=== PATIENT | female | born 1945 | race Caucasian/White ===

== ENCOUNTER → 2016-07-31 | Outpatient (CLI) | payer OTHER ==
[~2016-07-31] MED LIST: ACTOS 30 MG TAB30 MG PO; ADULT LOW DOSE81 MG PO; ALTACE10 M1 PO; ALTACE10 MG PO; BENICAR20 MG; BENICAR20 MG PO; CALTRATE PLUS1 EACH PO; CRESTOR10 MG PO; FISH OIL 1,001000 M2 PO; FORTICAL1 SPRAY NASAL; GLIPIZIDE 10 MG10 MG PO; GLUCOTROL5 MG PO; HYDROCHLOROTHIA25 M1 PO; HYDROCODONE-AP1 EAC6 PO; JANUVIA100 MG PO; LIPITOR 20 MG T20 M1 PO; MELATONIN3 MG PO; MIACALCIN; MOBIC15 MG PO; MULTIVITAMINS PO; PAXIL10 MG; PREMARIN0.45 MG PO; PROVERA2.5 MG PO; PROZAC 20 MG20 M1 PO; PROZAC20 MG PO; SYNTHROID50 MCG PO
== END ==
LOC: RAD 01:03
DX: D05.82 Other specified type of carcinoma in situ of left breast (principal)

== ENCOUNTER 2017-03-15 15:57 | Inpatient (IN) | payer OTHER ==
[~2017-03-15] VITALS: Ht 167.6 cm; Wt 127.0 kg
--- NOTE | ~2017-03-15 | P ---
[facility] [place] [address] [place] [address] PROCEDURE REPORT Name: YOSI TATE Room #: 438-P [facility] IN M.R.#: [id number] Admission: 03/15/17 Attend Phys: Mike Preciado DO Discharge: Date of : 47 Report #: [id number] THIS REPORT FOR: //name// CC: Orlando Hartmann MD [facility] Mike Dumont DATE OF SERVICE: 03/16/2017 PROCEDURE PERFORMED: Upper endoscopy. HISTORY OF PRESENT ILLNESS: The patient is a 71-year-old female with a history of anemia, previous gastric bypass surgery, started on Eliquis recently for atrial fib. She also takes aspirin. She was noted to be anemic with a hemoglobin of 7.6 on admission. She was transfused. Her hemoglobin at this time is 8.0. Plan is for upper endoscopy. DESCRIPTION OF PROCEDURE: The risks and benefits of the procedure were explained to the patient. Those risks including but not limited to bleeding, perforation and the risk of sedation. She understood these risks and gave informed consent. Sedation was given using propofol per Anesthesia. Next, using a standard Reactivityn upper endoscope, the scope was placed in the patient's mouth and advanced under direct vision through the esophagus into the stomach; at which point, a gastric bypass surgery was noted. The esophagus was normal. Throughout the GE junction was normal. The remaining gastric remnant was small. There was somewhat of a pouch to one side. There was no evidence of bleeding, no ulcerations or erosions were noted. There was then an efferent and an afferent limb of the jejunum anastomosed to the gastric remnant. I was able to advance the scope down both the limbs, down the afferent limb, no abnormalities were noted and it did come to a point where scope could not be advanced any further. This was then brought back up to the anastomosis site and I advanced the scope down the efferent limb well into the jejunum. No bleeding, no ulcerations were noted. Close analysis of the surgical anastomosis site showed no ulcer or bleeding. At this point, the scope was then withdrawn and the procedure terminated. The patient tolerated the procedure well. IMPRESSION: 1. Gastric bypass surgery noted as described above. No evidence of bleeding. 2. Normal esophagus. RECOMMENDATIONS: We will discuss options with the patient. I would consider repeating colonoscopy next as the patient does have anemia, heme positive stools and will need long-term anticoagulation therapy. If this is negative, may need to consider an M2 capsule at that point. [address] [address] PROCEDURE REPORT Name: YOSI TTAE Room #: 438-P [facility] IN .R.#: [id number] Admission: 03/15/17 Attend Phys: Mike Preciado DO Discharge: Date of : 47 Report #: [id number] Thank you for allowing me to participate in her care. <ELECTRONICALLY SIGNED> By: Miah Kwan MD 03/19/17 1417 1351 0118 Miah Kwan MD /india
--- NOTE | ~2017-03-15 | P ---
[facility] [address] [place] [address] PROCEDURE REPORT Name: YOSI TATE Room #: 438-P ADM IN M.R.#: [id number] Admission: 03/15/17 Attend Phys: Mike Preciado DO Discharge: Date of : 47 Report #: [id number] THIS REPORT FOR: //name// CC: Inpatient Chart Mike Preciado DO Ryan Dumont MD DATE OF SERVICE: 03/18/2017 The following is the diagnostic colonoscopy. She is the patient of Dr. Mike Preciado and Dr. Ryan Dumont. This is Dr. Nano Taveras recording. INDICATION FOR PROCEDURE: Anemia, heme positive stool and melena undetermined etiology. EGD was unrevealing as to a source of blood loss. DESCRIPTION OF PROCEDURE: Informed consent for this procedure was obtained prior to the administration of any medication. The risks of the procedure which include bleeding, perforation, infection, complications of sedation and the possibility I could miss something have been explained to the patient and she is indicated her consent by signing. Propofol was slowly titrated before and during this procedure for patient comfort by the anesthesia service. The Gamisfactionn colonoscope was introduced through the anal sphincter and advanced under direct visualization to the terminal ileum. Findings are noted on withdrawal of the scope. The terminal ileal mucosa appears normal. Cecum, normal mucosa. Ascending colon, normal mucosa. Retroflex view in the ascending colon did not reveal any abnormalities. Hepatic flexure, normal mucosa. Transverse colon, normal mucosa. Splenic flexure, normal mucosa. Descending colon, uncomplicated diverticulosis was noted. Sigmoid colon, uncomplicated diverticulosis is noted. Rectum, normal mucosa. Retroflex view did not reveal any abnormalities other than some mild irritation from the scope. The scope was withdrawn. The patient went to the recovery area in stable condition. She tolerated the procedure well. IMPRESSION: Normal colonoscopic exam to the terminal ileum except for uncomplicated left-sided diverticulosis, which could have been the source of some blood loss. My recommendations were for her to proceed to M2 capsule as the next study. This will probably need to be done as an outpatient. [address] [address] PROCEDURE REPORT Name: YOSI TATE Room #: 438-P [facility] IN M.R.#: [id number] Admission: 03/15/17 Attend Phys: Mike Preciado DO Discharge: Date of : 47 Report #: [id number] Thank you very much once again for allowing me to participate in her care, Dr. Preciado and Dr. Dumont. <ELECTRONICALLY SIGNED> By: Nano Taveras DO 03/19/17 0011 1535 2240 Nano Taveras DO /nt
--- NOTE | ~2017-03-15 | HC ---
[facility] [place] [address] [place] [address] CONSULTATION Name: YOSI TATE Fernando Room #: 438-P [facility] IN M.R.#: [id number] Admission: 03/15/17 Attend Phys: Mike Preciado DO Discharge: 03/21/17 Date of : 47 Report #: [id number] THIS REPORT FOR: //name// CC: Lisset Hartmann MD [facility] Mike Dumont DATE OF SERVICE: 03/16/2017 HISTORY OF PRESENT ILLNESS: The patient is a 71-year-old female with a history of anemia, microcystic, who underwent recent cataract surgery and was noted to be in AFib. She was then started on Eliquis approximately 3 weeks ago and on Wednesday began noticing black stools. Last colonoscopy was 3 years ago. No previous history of upper endoscopy. Hemoglobin was 7.6 before transfusion, hemoglobin this morning is 8.0. She had a previous gastric bypass type surgery approximately 15 years ago. She denies any abdominal pain. She denies any nausea or vomiting. No heartburn. She does take an aspirin on a regular basis as well. Her weight has been stable. Last dose of Eliquis was yesterday. 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 ALLERGIES: PENICILLIN. REVIEW OF SYSTEMS: As per HPI. FAMILY HISTORY: Negative for colon cancer or inflammatory bowel disease. SOCIAL HISTORY: She denies any tobacco or alcohol use. PHYSICAL EXAMINATION: VITAL SIGNS: Temperature is 98.0, pulse 62, blood pressure is 118/40, respiratory rate is 20. GENERAL: She is alert and oriented x 3 in no acute distress. HEENT: Sclerae nonicteric. Oropharynx clear. NECK: Supple without lymphadenopathy. CARDIOVASCULAR: Regular rate and rhythm. CHEST: Clear to auscultation bilaterally. ABDOMEN: Soft. She is nontender, nondistended, normoactive bowel sounds. EXTREMITIES: No cyanosis, clubbing or edema. LABORATORY DATA: Sodium 136, potassium 4.0, chloride 101, bicarbonate 28, BUN [address] [address] CONSULTATION Name: YOSI TATE Room #: 438-P [facility] IN .R.#: [id number] Admission: 03/15/17 Attend Phys: Mike Preciado DO Discharge: 03/21/17 Date of : 47 Report #: [id number], creatinine is 1.2. AST is 21, lipase 178, total bilirubin 0.3, alkaline phosphatase 95, ALT is 26, total protein 5.5, albumin 3.1. Iron 30, TIBC is 332, percent sat is 9. INR 1.2. WBC is 15.0, hemoglobin 8.0 and this is after 1 unit of packed cells, platelet count 200. Stool was Hemoccult positive yesterday x 1. ASSESSMENT AND PLAN: Anemia, heme positive stools. The patient reports recent black stools. She has been on Eliquis as well as aspirin. No previous history of upper endoscopy. Suspected upper gastrointestinal bleed. We will proceed with esophagogastroduodenoscopy today for further evaluation. We will make further recommendations after endoscopy. Continue to hold anticoagulation therapy. Agree with Protonix, which has been started b.i.d. Thank you for allowing me to participate in her care. <ELECTRONICALLY SIGNED> By: Miah Kwan MD 03/24/17 0811 1348 0010 Miah Kwan MD /nt
--- NOTE | ~2017-03-15 | HC ---
[facility] [place] [address] CONSULTATION Name: YOSI TATE Room #: 438-P [facility] IN M.R.#: [id number] Admission: 03/15/17 Attend Phys: Mike Preciado DO Discharge: Date of : 47 Report #: [id number] THIS REPORT FOR: //name// CC: Hitesh Mcdonald MD [facility] Mike Dumont MD REASON FOR CONSULT: Anemia. HISTORY OF PRESENT ILLNESS: The patient is a 71-year-old female who was scheduled to see today as an outpatient. She had noted that she had a history ____ records before wy, but she had a history of normal MCV about 86 about 2 or 3 years ago, dropped down to 78 and then after she took iron pills for 6 months, it rebounded. Also noted about that time, she repots that Dr. Olayinka Grace did a colonoscopy because she was heme positive, did not find any abnormalities. She did not have an EGD nor she ever had one. More recently, she after some cataract surgery had been noticed to have some atrial fibrillation. Dr. Hartmann had begun her on metoprolol as well as Eliquis. This was 2 weeks ago. This past Wednesday about 4 days ago, she noticed melena/black tarry stool, which she had never had before. She had not taken any Pepto-Bismol recently. She had not taken any iron pills recently. In the ER, she was noted to have hemoglobin of 7.6, was heme positive. She was also eventually noted that her BUN was 60, which ____ in the 20 or 30 range. Creatinine was 1.4. Other liver functions are normal. Noted albumin is 3.1. Total bilirubin specifically is normal. Her MCV yesterday has been 82.3. Chest x-ray was nonacute. She did receive 1 unit of packed red blood cells between 1905, which was completed at 2133 on 03/15/2017. REVIEW OF SYSTEMS: The patient denies headache, fevers, chills, nausea, vomiting, diarrhea, constipation, arm swelling. Has had some leg swelling for some time. No recent skin rash. No upset stomach. No dyspepsia. No burping or belching, any more than usual. PAST HISTORY: Notable for the anemia several years ago, for which she had a colonoscopy; also history of tubal ligation; lap cholecystectomy; lipomas removed; D and C in the past, though she still has her uterus now. Had a pituitary tumor removed by Dr. Hakan Salgado about 20 years ago in 1996. Had left foot reconstruction in the past. Had a gastric bypass 15 years ago. Had right knee replacement. 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 Had on the left breast biopsy, sounds like she says it is a tumor. She called it a chemical tumor. I think she is relating that she thinks it might have been told [address] [place] [address] CONSULTATION Name: YOSI TATE Room #: 438-P [facility] IN .R.#: [id number] Admission: 03/15/17 Attend Phys: Mike Preciado DO Discharge: Date of : 47 Report #: [id number] or she thought it is related to past estrogen usage. Also she has type 2 diabetes, atrial fibrillation, depression, hypertension, hyperlipidemia and hypothyroidism. MEDICATIONS PREVIOUS TO ADMISSION: Include metoprolol 25 mg daily, apixaban 5 mg b.i.d., multivitamins daily, aspirin 81 daily, calcium with vitamin D twice daily, Actos 30 mg daily, Benicar 20 mg daily, levothyroxine 50 mcg daily, hydrochlorothiazide 25 daily, glipizide 5 mg in the morning, Januvia 100 mg in the morning, fluoxetine/Prozac 20 mg in the morning, calcitonin 1 spray nasal morning, atorvastatin 20 mg daily, fish oil 2000 mg daily and melatonin 3 mg p.r.n. at night. In the hospital, her current medications include pantoprazole, which I just added; metoprolol 50 daily; atorvastatin 20 mg daily; calcitonin 1 spray daily; fluoxetine 20 mg daily; hydrochlorothiazide 25 mg daily; losartan 25 daily; enteric-coated aspirin 81 mg daily; multivitamins with minerals 1 tablet daily; IV fluids, which I just added at 70 mL daily while she is n.p.o. for probable EGD; glipizide 5 mg daily; levothyroxine 50 mcg daily; sliding scale insulin; melatonin 5 mg at bedtime and glucagon p.r.n. 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 She is originally from [place]. Her who 4 years ago, was with the [employer]. They transferred here. FAMILY HISTORY: Father had heart disease, mother may have also. She had no siblings. She has 3 children alive and well. She has a cat, named Christie, at home. Nonsmoker and nonalcoholic. No street drugs. ALLERGIES: REPORTED INCLUDE TROUBLES WITH METOLAZONE AND ALSO PREDNISONE CAUSING HIVES. PHYSICAL EXAMINATION: GENERAL: The patient appears her stated age. VITAL SIGNS: Include a height of 5 feet 6 inches (167.6 cm). Weight of 280 pounds (127 kilograms). Recent blood pressure is 126/40 with an O2 sat of 99%. Respirations are 20. Pulse is 60. Afebrile at 98.2. MOOD: The patient is alert and pleasant and appears to be a reliable historian. NEUROLOGIC: Face is symmetrical. She is moving all extremities. LYMPHATICS: No enlarged lymph nodes in the supraclavicular, cervical, axillary or inguinal region, but notes that she is quite obese. ABDOMEN: Nontender. No masses. EXTREMITIES: Without clubbing or cyanosis. LABORATORY: Here is notable for a BUN of 60 with the creatinine of 1.4. Liver functions are otherwise normal including total bili of 0.3 and albumin is 3.1. Iron studies I ordered on lab from before transfusion are pending. Coags were normal. White blood count 15.3 on admission. Hemoglobin 7.6, 8 after transfusion. MCV 82.3. RDW 15.3. Platelets 227. Differential shows a slight [facility] [address] [place] [address] CONSULTATION Name: YOSI TATE Room #: 438-P ADM IN M.R.#: [id number] Admission: 03/15/17 Attend Phys: Mike Preciado DO Discharge: Date of : 47 Report #: [id number] excess of absolute neutrophils. Retic count, which I ordered, is pending. UA pending. Note that previous UA as an outpatient had been negative for blood. DISCUSSION: Discussed with patient that with the melena and anemia, she most likely has an upper GI bleed. Told her that we agreed holding the Eliquis. We will also hold her fish oil. GI has been consulted. We will began on pantoprazole 40 mg b.i.d. IV. We will await endoscopy results. ASSESSMENT AND PLAN: 1. Anemia, most likely related to upper gastrointestinal bleed that maybe a combination of preexisting lesion and recent Eliquis. We will await gastrointestinal results. Hold anticoagulation at this time. We will begin pantoprazole IV drip. 2. Atrial fibrillation, recently diagnosed. Hold anticoagulation until gastrointestinal bleeding source documented and possibly treated. Continue rate control with metoprolol. 3. Diabetes. Continue oral agents and sliding scale insulin and dietary restrictions. 4. Hypertension. Medications as above. 5. History of pituitary tumor with Nahomi syndrome and hypothyroidism. Continue with thyroid replacement. 6. Hyperlipidemia. Continue with statins. 7. Mood disorder. Continue with Prozac. We will follow with you. <ELECTRONICALLY SIGNED> By: Charanjit Weston MD 03/17/17800 3 36 Charanjit Weston MD /nt
--- NOTE | ~2017-03-15 | EKG ---
[address] [address] ELECTROCARDIOGRAM REPORT Name: BEBETOYOSI Room #: 438-P ADM IN M.R.#: [id number] Admission: 03/15/17 Attend Phys: Mike Preciado DO Discharge: Date of : 47 Report #: [id number] THIS REPORT FOR: //name// [facility] ED Test Date: 2017-03-15 Test Time: 16:02:40 Pat Name: YOSI TATE Department: Room: 438 Gender: F Sales Representative [employer]: NIGHAT : 1945 Requested By: Gary Mata Order Number: [id number] MD: Raad Bell Measurements Intervals [place] Rate: 56 P: 37 AR: 148 QRS: -18 QRSD: 104 T: 23 QT: 500 QTc: 483 Interpretive Statements Sinus rhythm Left ventricular hypertrophy Compared to ECG 09/04/2014 07:39:19 No significant changes Electronically Signed On 03-15-2017 21:05:31 TAPE CALENDER by Raad Bell [email or web address] <ELECTRONICALLY SIGNED> By: Raad Bell MD 03/15/17 2105 1602 01 Raad Bell MD /NATHANIEL
[2017-03-15 15:58] VITALS: BP 136/65
[2017-03-15] MEDS ORDERED: TOPROL XL25 MG PO (16:05)
[2017-03-15] MEDS ORDERED: ELIQUIS5 MG PO (16:05)
[2017-03-15] MEDS ORDERED: PIOGLITAZONE15 MG (16:05)
[2017-03-15 17:16] LABS: ABSOLUTE NEUTROPHILS 10.4 thou/uL (1.4-8.2); BASOPHILS 0.5 % (0.0-2.0); EOSINOPHILS 0.3 % (0.0-3.0); HEMATOCRIT 23.3 % (37.0-47.0); HEMOGLOBIN 7.6 gm/dL (12.0-15.0); LYMPHOCYTES 24.2 % (24.0-44.0); MANUAL DIFF NO; MCH 26.7 pg (26.0-34.0); MCHC 32.4 g/dL (28.0-37.0); MCV 82.3 fL (80.0-100.0); MONOCYTES 6.5 % (1.0-8.0); PLATELET COUNT 227 thou/uL (150-400); POLYS 68.5 % (36.0-66.0); RBC 2.84 mil/uL (4.20-5.00); RDW 15.3 % (10.5-14.5); WBC 15.3 thou/uL (4.0-11.0)
[2017-03-15 17:34] LABS: ANION GAP 11 mmol/L (7-16); BUN 60 mg/dL (7-18); CALCIUM 9.1 mg/dL (8.5-10.1); CHLORIDE 100 mmol/L (98-107); CO2 26 mmol/L (21-32); CREATININE 1.4 mg/dL (0.6-1.0); GLUCOSE 178 mg/dL (74-106); POTASSIUM 4.2 mmol/L (3.5-5.1); SODIUM 137 mmol/L (136-145)
[2017-03-15 17:37] LABS: APTT 21.2 Seconds (24.5-32.8); INR 1.2; PROTIME 11.8 Seconds (9.3-11.4)
[2017-03-15 17:42] LABS: ALBUMIN 3.1 g/dL (3.4-5.0); ALKALINE PHOSPHATASE 95 U/L (46-116); DIRECT BILIRUBIN 0.1 mg/dL (<0.1-0.3); SGOT 21 U/L (15-37); SGPT 26 U/L (30-65); TOTAL BILIRUBIN 0.3 mg/dL (<0.1-1.0); TOTAL PROTEIN 5.5 g/dL (6.4-8.2); TROPONIN-I < 0.04 ng/mL (<0.06)
[2017-03-15 18:30] VITALS: BP 135/50
[2017-03-15 18:57] VITALS: BP 11/56; BP 141/56; BP 145/58; BP 146/57; BP 146/63; BP 155/54
[2017-03-15 19:30] VITALS: BP 135/50
[2017-03-15 20:00] VITALS: BP 144/52
[2017-03-16 00:50] VITALS: BP 112/42
[2017-03-16 04:00] VITALS: BP 126/40
[2017-03-16 06:49] LABS: ABSOLUTE NEUTROPHILS 10.3 thou/uL (1.4-8.2); BASOPHILS 0.2 % (0.0-2.0); EOSINOPHILS 0.2 % (0.0-3.0); HEMATOCRIT 24.2 % (37.0-47.0); LYMPHOCYTES 23.2 % (24.0-44.0); MCH 27.2 pg (26.0-34.0); MCV 82.5 fL (80.0-100.0); MONOCYTES 7.6 % (1.0-8.0); PLATELET COUNT 200 thou/uL (150-400); POLYS 68.8 % (36.0-66.0); RBC 2.94 mil/uL (4.20-5.00); RDW 15.4 % (10.5-14.5)
[2017-03-16 06:51] LABS: CALCIUM 8.7 mg/dL (8.5-10.1); CREATININE 1.2 mg/dL (0.6-1.0); MANUAL DIFF NO
[2017-03-16 08:00] VITALS: BP 118/40
[2017-03-16 08:10] LABS: % SATURATION 9 % (20-39); IRON 30 ug/dL (50-170); TIBC 332 ug/dL (250-450); UIBC 302 ug/dL
[2017-03-16 08:28] LABS: ABSOLUTE RETIC COUNT 0.0818 10^6/uL; OBSERVED RETIC COUNT 2.9 % (0.6-2.6)
[2017-03-16 09:12] LABS: FOLIC ACID 28.6 ng/mL (8.6-58.9)
[2017-03-16 15:50] VITALS: BP 125/80
[2017-03-16 20:03] VITALS: BP 135/48
[2017-03-17 05:19] VITALS: BP 135/45
[2017-03-17 06:17] LABS: CALCIUM 8.3 mg/dL (8.5-10.1); CREATININE 1.5 mg/dL (0.6-1.0); POTASSIUM 4.9 mmol/L (3.5-5.1)
[2017-03-17 06:21] LABS: ABSOLUTE NEUTROPHILS 9.4 thou/uL (1.4-8.2); BASOPHILS 0.3 % (0.0-2.0); EOSINOPHILS 0.7 % (0.0-3.0); HEMOGLOBIN 7.2 gm/dL (12.0-15.0); LYMPHOCYTES 25.5 % (24.0-44.0); MANUAL DIFF NO; MCH 27.1 pg (26.0-34.0); MCHC 32.7 g/dL (28.0-37.0); MCV 82.8 fL (80.0-100.0); MONOCYTES 7.5 % (1.0-8.0); PLATELET COUNT 211 thou/uL (150-400); RBC 2.66 mil/uL (4.20-5.00); RDW 15.3 % (10.5-14.5); WBC 14.3 thou/uL (4.0-11.0)
[2017-03-17 07:25] VITALS: BP 134/54
[2017-03-17 13:13] LABS: HEMATOCRIT 22.3 % (37.0-47.0); HEMOGLOBIN 7.3 gm/dL (12.0-15.0)
[2017-03-17 15:15] VITALS: BP 126/45
[2017-03-17 20:04] VITALS: BP 114/35
[2017-03-18 04:00] VITALS: BP 128/74; BP 128/742
[2017-03-18 07:16] LABS: BASOPHILS 0.2 % (0.0-2.0); EOSINOPHILS 1.3 % (0.0-3.0); HEMATOCRIT 21.8 % (37.0-47.0); HEMOGLOBIN 7.2 gm/dL (12.0-15.0); LYMPHOCYTES 21.7 % (24.0-44.0); MCH 27.9 pg (26.0-34.0); MCHC 33.2 g/dL (28.0-37.0); MCV 83.8 fL (80.0-100.0); MONOCYTES 6.5 % (1.0-8.0); PLATELET COUNT 251 thou/uL (150-400); POLYS 70.3 % (36.0-66.0); RDW 15.7 % (10.5-14.5); WBC 12.8 thou/uL (4.0-11.0)
[2017-03-18 07:19] LABS: MANUAL DIFF NO
[2017-03-18 07:27] LABS: CALCIUM 8.4 mg/dL (8.5-10.1); CREATININE 1.1 mg/dL (0.6-1.0); POTASSIUM 4.4 mmol/L (3.5-5.1)
[2017-03-18 08:26] VITALS: BP 127/57
[2017-03-18 16:33] VITALS: BP 143/40
[2017-03-18 20:14] VITALS: BP 131/44
[2017-03-19 05:05] VITALS: BP 133/49
[2017-03-19 05:30] LABS: EOSINOPHILS 1.4 % (0.0-3.0); HEMATOCRIT 20.5 % (37.0-47.0); HEMOGLOBIN 6.8 gm/dL (12.0-15.0)
[2017-03-19 05:32] LABS: BASOPHILS 0.6 % (0.0-2.0); LYMPHOCYTES 21.3 % (24.0-44.0); MCH 27.9 pg (26.0-34.0); MCHC 33.2 g/dL (28.0-37.0); PLATELET COUNT 270 thou/uL (150-400); POLYS 67.7 % (36.0-66.0); RBC 2.44 mil/uL (4.20-5.00); RDW 15.8 % (10.5-14.5); WBC 11.8 thou/uL (4.0-11.0)
[2017-03-19 05:34] LABS: MANUAL DIFF NO
[2017-03-19 05:42] LABS: CALCIUM 8.4 mg/dL (8.5-10.1); CREATININE 1.2 mg/dL (0.6-1.0); POTASSIUM 4.7 mmol/L (3.5-5.1)
[2017-03-19 08:00] VITALS: BP 122/54
[2017-03-19 10:48] VITALS: BP 122/58; BP 124/58
[2017-03-19 16:00] VITALS: BP 136/49
[2017-03-19 20:13] VITALS: BP 116/46
[2017-03-20 05:43] LABS: ABSOLUTE NEUTROPHILS 8.1 thou/uL (1.4-8.2); BASOPHILS 0.3 % (0.0-2.0); EOSINOPHILS 1.6 % (0.0-3.0); HEMATOCRIT 23.6 % (37.0-47.0); HEMOGLOBIN 7.9 gm/dL (12.0-15.0); LYMPHOCYTES 22.3 % (24.0-44.0); MCHC 33.5 g/dL (28.0-37.0); MCV 83.6 fL (80.0-100.0); MONOCYTES 9.8 % (1.0-8.0); PLATELET COUNT 262 thou/uL (150-400); RBC 2.83 mil/uL (4.20-5.00); RDW 15.4 % (10.5-14.5); WBC 12.3 thou/uL (4.0-11.0)
[2017-03-20 05:46] LABS: MANUAL DIFF NO
[2017-03-20 05:55] LABS: CALCIUM 8.1 mg/dL (8.5-10.1); CREATININE 1.2 mg/dL (0.6-1.0); POTASSIUM 4.4 mmol/L (3.5-5.1)
[2017-03-20 07:52] VITALS: BP 114/41
[2017-03-20 16:21] VITALS: BP 116/44
[2017-03-20 19:26] VITALS: BP 112/30
[2017-03-21 04:26] VITALS: BP 131/44
[2017-03-21 06:06] LABS: HEMATOCRIT 23.9 % (37.0-47.0); HEMOGLOBIN 7.9 gm/dL (12.0-15.0); MCHC 33.2 g/dL (28.0-37.0); MCV 84.5 fL (80.0-100.0); PLATELET COUNT 258 thou/uL (150-400); RBC 2.83 mil/uL (4.20-5.00); RDW 16.2 % (10.5-14.5); WBC 11.3 thou/uL (4.0-11.0)
[2017-03-21 06:17] LABS: MANUAL DIFF YES
[2017-03-21 07:17] VITALS: BP 135/51
[2017-03-21] MEDS ORDERED: PACERONE 200 M200 M1 PO (10:02)
[2017-03-21 10:39] LABS: ABSOLUTE NEUTROPHILS 8.4 thou/uL (1.4-8.2); METAMYELOCYTES 2 %; TOTAL CELL COUNT 100
[2017-03-21 10:40] LABS: ANISOCYTOSIS 1+; POLYCHROMASIA SLIGHT
[2017-03-21 14:53] VITALS: BP 135/51
== END 2017-03-21 16:31 | disposition home or self-care (01) | DRG 377 ==
LOC: ER 15:57 → 4S 17:51 → EROBS 17:51 → 4S 19:36
PROVIDERS: Family Medicine; Internal Medicine Gastroenterology; Internal Medicine Hematology & Oncology; Nurse Practitioner
PROC: 30233N1 Transfusion of Nonautologous Red Blood Cells into Peripheral Vein, Percutaneous Approach (ICD-10-PCS; 2017-03-15)
PROC: 0DJ08ZZ Inspection of Upper Intestinal Tract, Via Natural or Artificial Opening Endoscopic (ICD-10-PCS; principal; 2017-03-16)
PROC: 0DJD8ZZ Inspection of Lower Intestinal Tract, Via Natural or Artificial Opening Endoscopic (ICD-10-PCS; 2017-03-18)
DX: K92.1 Melena (principal); N17.1 Acute kidney failure with acute cortical necrosis; E24.9 Cushing's syndrome, unspecified; Z68.42 Body mass index [BMI] 45.0-49.9, adult; D62 Acute posthemorrhagic anemia; Z96.651 Presence of right artificial knee joint; F32.9 Major depressive disorder, single episode, unspecified; E11.9 Type 2 diabetes mellitus without complications; I10 Essential (primary) hypertension; E78.00 Pure hypercholesterolemia, unspecified; E03.9 Hypothyroidism, unspecified; K57.30 Diverticulosis of large intestine without perforation or abscess without bleeding; E66.9 Obesity, unspecified; R55 Syncope and collapse; D49.7 Neoplasm of unspecified behavior of endocrine glands and other parts of nervous system; I48.0 Paroxysmal atrial fibrillation; I95.9 Hypotension, unspecified; Z90.49 Acquired absence of other specified parts of digestive tract; Z98.84 Bariatric surgery status; Z79.82 Long term (current) use of aspirin; Z79.899 Other long term (current) drug therapy; Z88.8 Allergy status to other drugs, medicaments and biological substances; Z98.49 Cataract extraction status, unspecified eye; Z88.0 Allergy status to penicillin; Z82.49 Family history of ischemic heart disease and other diseases of the circulatory system; Z85.3 Personal history of malignant neoplasm of breast
CPT/HCPCS: 10100; 62110; 62900; 70005

== ENCOUNTER 2017-07-10 08:44 | Inpatient (IN) | payer OTHER ==
[~2017-07-10] VITALS: Ht 167.6 cm; Wt 127.0 kg
--- NOTE | ~2017-07-10 | S ---
[facility] [place] [address] SURGICAL PATH RPT PROCEDURE Name: YOSI VANN Room #: 441-P DIS IN M.R.#: [id number] Admission: 07/10/17 Date of : 47 Discharge: 07/14/17 Report #: [id number] Path Case #: [id number] PATHOLOGY REPORT COLLECTION DATE: 07/14/2017 RECEIVED DATE: 07/14/2017 SUBMITTING PHYS: Dr. Mando Wilcox OTHER PHYS: Dr. Ryan Dumont SPECIMEN(S) RECEIVED: A.Bone marrow, biopsy B.Bone marrow, clot and/or particle prep C.Bone marrow, aspirate smears D.Peripheral smear * * * * * * * * * * * * FINAL DIAGNOSIS: Bone marrow aspirate, biopsy, cell clot and peripheral blood: - Peripheral blood with moderate to severe microcytic anemia and mild leukocytosis/neutrophilia. - Mildly hypercellular bone marrow with trilineage hematopoiesis, mild erythroid hyperplasia, mild dyspoiesis and no evidence of lymphoma or acute leukemia (see comment). (CLW:itzel; 07/20/2017) COMMENT: Overall, the bone marrow is mildly hypercellular for the patient's age with trilineage hematopoiesis, mild erythroid hyperplasia, mild dyspoiesis and no evidence of lymphoma or acute leukemia. The dyspoiesis is very mild and while it could possibly represent a low grade myelodysplastic syndrome, it does not meet the morphologic criteria for myelodysplasia. Correlation with clinical history, additional laboratory data and cytogenetics is recommended. (CLW:itzel; 07/20/2017) PATHOLOGIST: Valentine Mcclendon M.D. REPORT ELECTRONICALLY SIGNED BY: Valentine Mcclendon M.D. DATE/TIME: 07/20/2017 17:46 * * * * * * * * * * * * MICROSCOPIC DESCRIPTION: CBC Data (07/20/2017): WBC 13,100 /uL, RBC 3.36, hemoglobin 8.3 g/dL, hematocrit 25.4%, MCV 75.8 fL, MCH 24.8 pg, MCHC 32.8 g/dL, RDW 22.9%, and platelet count 356,000 /uL. Manual white blood cell differential: segs 66%, lymphs 22%, monos 4%, eos 7%, and basos 1%. Peripheral Blood Smear: Cytomorphological examination of the Carrera's stained peripheral [address] [address] SURGICAL PATH RPT PROCEDURE Name: YOSI VANN Room #: 441-P [facility] IN [facility].#: [id number] Admission: 07/10/17 Date of : 47 Discharge: 07/14/17 Report #: [id number] Path Case #: [id number] blood smear confirms the provided data. Red blood cells show severe microcytic anemia with no significant anisopoikilocytosis. Rare target cells are noted. No schistocytes or microspherocytes are seen. White blood cells are mildly increased in number. They are predominantly segmented neutrophils with reactive changes. There is no significant dyspoiesis or significant left shift. Lymphocytes are predominantly small, round, and mature appearing with condensed chromatin and scant cytoplasm with admixed large granular lymphocytes and reactive appearing lymphocytes. Monocytes are mature. Platelets are adequate in number and mainly normal in morphology with rare larger platelets noted. Aspirate Smears: Cytomorphological examination of the Carrera's stained aspirate smears shows spicules present. The overall cellularity is approximately 60%. The myeloid to erythroid ratio is 2.5:1. Full myeloid maturation is identified and is without significant dyspoiesis. Erythroid maturation is mildly dyserythropoietic with irregular nuclear contours, binucleate forms, and rare nuclear budding. In a 500 cell differential, there are 1% blasts (no Marisa rods are seen), 61% more differentiated myeloids, 25% erythroid precursors, 12% lymphocytes and 1% plasma cells. Megakaryocytes are proportional in number and both normal and abnormal in morphology with variable sizes in nuclear abnormalities. No lymphoid aggregates or markedly atypical lymphoid cells are seen. Plasma cells are without atypia. Iron stain of the aspirate smear shows 1/4+ iron positivity with spicules present. No ringed sideroblasts are identified. Core Biopsy and Cell Clot: The decalcified bone marrow core biopsy is adequate. The bone marrow is hypercellular with an overall cellularity of approximately 60%. The myeloid to erythroid ratio is 1-2:1. Myeloid maturation is without significant dyspoiesis. Erythroid maturation is mildly dyserythropoietic. Megakaryocytes are normal in number and both normal and abnormal in morphology. No lymphoid aggregates or markedly atypical lymphoid cells are seen. Bony trabeculae and blood vessels are unremarkable. The cell clot has spicules present that are similar in cellularity and differential morphology as previously described. A mild eosinophilia is noted. Iron stain of the cell clot (Block B1) shows 2/4+ iron positivity with spicules present. Flow Cytometry: Flow cytometric immunophenotypic analysis was performed at [facility]. The diagnosis is "no diagnostic immunophenotypic abnormalities detected." There are 11.4% lymphocytes. Of the lymphocytes, there are 88% T-cells with a CD4/CD8 ratio of 1.1 and no aberrant T-cell antigen expression and 5% polyclonal B-cells (kappa lambda ratio of 1.5). There are 0.5% CD34 positive cells (blasts). No immunophenotypic evidence of a lymphoproliferative disorder, acute leukemia, increase in blasts or plasma cells is identified. Please see separate flow cytometry [facility] [address] [place] [address] SURGICAL PATH RPT PROCEDURE Name: YOSI VANN Room #: 441-P DIS IN M.R.#: [id number] Admission: 07/10/17 Date of : 47 Discharge: 07/14/17 Report #: [id number] Path Case #: [id number] report from [facility] ([id number]). Cytogenetics Analysis: Cytogenetic chromosomal analysis is pending at [facility] ([id number]). (CLW:itzel; 07/20/2017) GROSS PATHOLOGY: A. Received in formalin labeled "Yosi Vann, bone marrow biopsy" and consists of a 1.0 cm in length by 0.3 cm in diameter to centeno-brown bone core which is totally submitted as A1, following decalcification. B. Received in formalin labeled "Yosi Vann, clot" and consists of a 3.0 x 2.5 x 2.0 cm blood clot. The specimen is entirely submitted B1-B5. (RUBI; 07/14/2017) CLINICAL HISTORY: Anemia 71-year-old woman with anemia and leukocytosis INITIAL CPT CODE(S): A; 14193, 56246 B; 94994, 31567 C; 16040, 55567 D; 38521 Professional services performed by [facility] at [facility] [address] , [place] [address] Technical services performed by [facility] at [address] [place] [address], [address], [place] [address]. [facility] [address] [place] [address] PHONE: [phone] DIRECTOR: Brodie Kendall M.D. * * * END OF REPORT * * *
--- NOTE | ~2017-07-10 | HC ---
[facility] [place] [address] CONSULTATION Name: BEBETOYOSI E Room #: 441-P ADM IN M.R.#: [id number] Admission: 07/10/17 Attend Phys: Mando Wilcox MD Discharge: Date of : 47 Report #: [id number] THIS REPORT FOR: //name// CC: ARMIDA Hartmann MD [facility] Mando Dumont MD HISTORY OF PRESENT ILLNESS: The patient is a very pleasant 71-year-old female who I know with a history of noninvasive breast cancer from 2014, more recently from 03/2017 with iron-deficiency anemia. She had received IV iron with INFeD in March, but unfortunately, her hemoglobin did not get better since and it actually has gotten worse. In the past recent, she has had a colonoscopy and lower endoscopy and also pill camera, without any sign of measurable loss of iron. Her iron indices this admit are a bit inconclusive. Her MCV has dropped, so I would be suspicious that she is more iron deficient. She also has a history of stomach gastric bypass and probably has trouble absorbing iron. The patient says that about 3 days ago, she became very weak. Her legs began to swell, maybe 3 days ago also. Denies any fevers, chills, headache, any swollen glands or swallowing difficulties, nausea, vomiting, diarrhea, constipation, obvious blood in her urine or stool or skin rash. PAST MEDICAL HISTORY: Past history is notable for the history of anemia from the past, had IV iron on about 03/17/2017. Prior to that, had upper and lower and pill camera endoscopies, which were unrevealing. At that time, she had a history of heme positivity and what sounded like melena. The patient may have dropped, but inconclusive. We will arrange for bone marrow biopsy both to see if she is iron replete as well as to look for bone marrow abnormalities that may be contributing to her anemia. Also, has a history of a GI bleed with melena, but she had been on Eliquis back in March. 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 Hakan Salgado some 20 years ago. Also, history of type 2 diabetes, history of noninvasive breast cancer, history of hypertension, history of mood disorder and history of hypercholesterolemia. History of tubal ligation, laparoscopic cholecystectomy, lipomas removed with D and C, but I think, she still has her uterus. Gastric bypass was about 15 years ago, had left foot reconstruction and right knee replacement. SOCIAL HISTORY: She has a cat at home named Jackelin, currently being cared for by her daughter. 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 She is originally from [place]. about 4-1/2 years ago. He was with the [employer]. They had transferred here. She is a nonsmoker, no alcohol. No street drug usage. [address] [address] CONSULTATION Name: BEBETOYOSI E Room #: 441-P [facility] IN M.R.#: [id number] Admission: 07/10/17 Attend Phys: Mando Wilcox MD Discharge: Date of : 47 Report #: [id number] FAMILY HISTORY: Father with heart disease, mother may have also. No siblings. Has 3 children, alive and well. The cat named Jackelin, taken care by daughter. ALLERGIES: REPORTEDLY HAD TROUBLE WITH METOLAZONE AND PREDNISONE IN THE PAST. MEDICATIONS: At this time in the hospital currently include amiodarone 400 mg daily, metoprolol 50 mg daily, atorvastatin calcium 20 mg daily, calcitonin 1 spray nasally daily, fluoxetine 20 mg daily, glipizide 5 mg daily, ceftriaxone 1 gram q.24h., levothyroxine 50 mcg daily, melatonin 5 mg at bedtime and MiraLax 17 g daily. RADIOLOGIC DATA: Radiologic studies this admit include a CT chest, abdomen and pelvis done for elevated alkaline phosphatase that showed a right adrenal gland mass, gastric bypass, surgical changes, no lymphadenopathy, small pleural effusions, nonunion of a right clavicle fracture and mild focal infiltrate in the right lung. Ultrasound of the abdomen done this admit for elevated liver function test showed evidence of past cholecystectomy and common bile duct prominence, which was nonspecific. Lab test results reveal a BUN of 13, creatinine of 1. AST of 68; total bilirubin of 1, down from 1.4; lipase is 63; ALT of 24, note the AST had been normal back in March and alkaline phosphatase of 561, note that back in March, it had been 95 range. Albumin 1.7. Free T4 at 1.0. Iron 21, TIBC 88, those are both low and percent saturation 24. Note that percent saturation back in March had been 9, iron back in March had been 30 and TIBC back in March had been 332. Coags in March were normal. White blood count 10.2; hemoglobin 8.6 after transfusion, it was 7.8 on admission and 6.1 yesterday, 9.2 after transfusion and 8.6 today; MCV back in March had been 84 and on admission on 07/10/2017, it was 72.2; RDW back in March had been 16.2, recently 22 and platelet count 363,000. Differential nonacute, though some increased neutrophils. Note that the patient's absolute retic count back in March had been 81. TSH recently 4.73. Ferritin 1164. Folate 30.1. Vitamin B12 at 1596. Note that the soluble transferrin receptor assay is pending. Erythropoietin level is pending. Vitamin D 25-hydroxy is 66.6. U/A had a few white cells and greater than 30 bacteria. ASSESSMENT AND PLAN: 1. Probable iron-deficiency anemia, but hypoproliferative, unclear whether iron loss or bone marrow condition. We will arrange for bone marrow biopsy. Discussed with the patient. She will remain n.p.o. and I have already talked with Interventional Radiology and the patient's nurse. 2. History of stage 0 left-sided breast cancer from 2014, not known to be an issue. The patient states she is up-to-date on mammograms. 3. Atrial fibrillation and cardiac issues. Continues amiodarone. 4. Diabetes. Continues oral agents [place] [address] CONSULTATION Name: TATEYOSI E Room #: 441-P [facility] IN .R.#: [id number] Admission: 07/10/17 Attend Phys: Mando Wilcox MD Discharge: Date of : 46 Report #: [id number] 5. History of pituitary tumor and hypothyroidism. Continue thyroid replacement. 6. Also anemia. Transfuse as needed. 7. Renal insufficiency. We will monitor. We will follow with you. <ELECTRONICALLY SIGNED> By: Charanjit Weston MD 07/13/17 2226 [id number] Charanjit Weston MD /nt
--- NOTE | ~2017-07-10 | HC ---
[facility] [place] [address] CONSULTATION Name: JUAN CARLOS TATEDES King Room #: 441-P [facility] IN .R.#: [id number] Admission: 07/10/17 Attend Phys: Mando Wilcox MD Discharge: 07/14/17 Date of : 47 Report #: [id number] THIS REPORT FOR: //name// CC: Mando Dumont DATE OF SERVICE: 07/11/2017 HISTORY OF PRESENT ILLNESS: The patient is a 71-year-old female who was admitted on 07/10/2017 with increased generalized weakness, also complaining of increasing lower extremity edema. Reason for GI consultation is anemia. Her hemoglobin on admission was 7.8, it dropped to 6.1 today. She did receive 1 unit of packed cells earlier today. She has undergone an anemia workup with Hemoccult positive stools in March. This included an upper endoscopy by myself which showed gastric bypass changes, but no stigmata of bleeding. A colonoscopy was performed by Dr. Taveras, my partner, which showed diverticular disease, but otherwise normal. No evidence of bleeding. At that point, we recommended an M2 capsule. I do not have a copy of these results, but it appears this was performed and was negative. She does report some dark stools, but she has been on iron. She denies any nausea or vomiting. No abdominal pain, no bright red blood per rectum. She denies any hematemesis. Her stool study is pending at this time. Previously, she was heme positive in March. She denies any chest pain or shortness of breath currently. No fevers or chills. PAST MEDICAL HISTORY: Anemia, obesity, renal insufficiency, previous laparoscopic cholecystectomy, elevated liver function tests, previous gastric bypass surgery, history of Nahomi syndrome, atrial fibrillation, diabetes, depression, hypertension, hypercholesterolemia, hypothyroidism. MEDICATIONS ON ADMISSION: Toprol, Eliquis, multivitamin, aspirin 81 mg, Caltrate, Actos, Benicar, Synthroid, hydrochlorothiazide, Glucotrol, Januvia, Prozac, calcitonin spray, Lipitor, fish oil and melatonin. ALLERGIES: METOLAZONE AND PREDNISONE. REVIEW OF SYSTEMS: As per HPI. FAMILY HISTORY: Negative for colon cancer. SOCIAL HISTORY: She denies any tobacco or alcohol use. PHYSICAL EXAMINATION: VITAL SIGNS: Temperature is 98.0, pulse 59, blood pressure 131/57, respiratory rate is 18. [facility] [address] [place] [address] CONSULTATION Name: YOSI TATE Room #: 441-P [facility] IN [facility]#: [id number] Admission: 07/10/17 Attend Phys: Mando Wilcox MD Discharge: 07/14/17 Date of : 46 Report #: [id number] GENERAL: She is alert and oriented x 3 in no acute distress. HEENT: Sclerae nonicteric. Oropharynx is clear. NECK: Supple without lymphadenopathy. CARDIOVASCULAR: Regular rate. CHEST: Clear to auscultation anteriorly bilaterally. ABDOMEN: Obese, soft, nontender, nondistended, normoactive bowel sounds. EXTREMITIES: A +1 pitting edema of the lower extremities bilaterally. LABORATORY DATA: Sodium 133, potassium 3.6, chloride 100, bicarbonate 27, BUN 20, creatinine 1.1. AST is 55, lipase 63, total bilirubin 1.4, magnesium 1.6, alkaline phosphatase 542, ALT is 25. GGTP 111. Total protein 6.1, albumin 1.8. Iron 21, TIBC is 88, percent sat is 24. WBC is 11.5, hemoglobin 6.1, MCV is 71.9, platelet count is 305. Ultrasound of the abdomen performed yesterday shows cholecystectomy changes with mild common bile duct prominence, otherwise unremarkable. ASSESSMENT AND PLAN: 1. Anemia. This is microcytic. The patient previously had heme positive stool and extensive workup including esophagogastroduodenoscopy, colonoscopy and apparently M2 capsule endoscopy. At this point, we will recommend repeating stool studies which has been ordered; this is pending at this time. If this is negative, may need to consider other etiologies such as an iron malabsorption as the patient has had a previous gastric bypass. If heme positive, may need to consider repeating upper endoscopy. Agree with blood transfusion, which was given today. Continue to monitor hemoglobin closely. 2. Elevated liver function test. Etiology is unclear. Ultrasound was essentially negative. The patient has had a previous cholecystectomy. She is denying any abdominal pain. May need to consider further liver lab workup. Thank you for allowing me to participate in her care. <ELECTRONICALLY SIGNED> By: Miah Kwan MD 07/19/17 0922 [id number] [id number] Miah Kwan MD /nt
[~2017-07-10 08:44] MED LIST changes: +ELIQUIS5 MG PO; +PACERONE 200 M200 M1 PO; +PIOGLITAZONE15 MG; +TOPROL XL25 MG PO
[2017-07-10 08:46] VITALS: BP 135/58
[2017-07-10 09:14] LABS: BASOPHILS 0.8 % (0.0-2.0); EOSINOPHILS 0.8 % (0.0-3.0); HEMATOCRIT 23.1 % (37.0-47.0); HEMOGLOBIN 7.8 gm/dL (12.0-15.0); LYMPHOCYTES 13.9 % (24.0-44.0); MCH 24.3 pg (26.0-34.0); MCHC 33.6 g/dL (28.0-37.0); MCV 72.2 fL (80.0-100.0); MONOCYTES 4.5 % (1.0-8.0); PLATELET COUNT 371 thou/uL (150-400); RDW 21.7 % (10.5-14.5); WBC 16.3 thou/uL (4.0-11.0)
[2017-07-10 09:25] LABS: CALCIUM 8.7 mg/dL (8.5-10.1); CREATININE 1.3 mg/dL (0.6-1.0); POTASSIUM 3.7 mmol/L (3.5-5.1)
[2017-07-10 09:31] LABS: ALBUMIN 1.8 g/dL (3.4-5.0); DIRECT BILIRUBIN 1.1 mg/dL (<0.1-0.3); TOTAL BILIRUBIN 1.4 mg/dL (<0.1-1.0); TOTAL PROTEIN 6.1 g/dL (6.4-8.2)
[2017-07-10 09:46] LABS: URINE BLOOD NEGATIVE (Negative); URINE CLARITY CLEAR; URINE GLUCOSE-RANDOM* NEGATIVE (Negative); URINE KETONES NEGATIVE (Negative); URINE LEUKOCYTES-REFLEX NEGATIVE (Negative); URINE PROTEIN (DIPSTICK) NEGATIVE (Negative); URINE UROBILINOGEN >= 8.0 E.U./dl (0.2-1.0)
[2017-07-10 09:49] LABS: URINE NITRITE-REFLEX POSITIVE (Negative)
[2017-07-10 09:50] LABS: ICTOTEST (BILI CONFIRMATORY) Negative (Negative); URINE BILIRUBIN NEGATIVE (Negative); URINE COLOR DK YELLOW
[2017-07-10 10:00] LABS: BACTERIA-REFLEX >30 Many /HPF (None Seen); CASTS None Seen /LPF (None Seen); CRYSTALS None Seen /LPF (None Seen); SQUAMOUS 0-3 Few /LPF (0-3); URINE RBC None Seen /HPF (0-2); URINE WBC-REFLEX 6-15 Few /HPF (0-5)
[2017-07-10 10:09] LABS: ANISOCYTOSIS 1+; MICROCYTES 1+
[2017-07-10 12:42] VITALS: BP 135/58
[2017-07-10 12:57] VITALS: BP 139/62
[2017-07-10 13:34] VITALS: BP 143/46
[2017-07-10 16:06] VITALS: BP 151/65
[2017-07-10 16:57] LABS: % SATURATION 24 % (20-39); IRON 21 ug/dL (50-170); TIBC 88 ug/dL (250-450)
[2017-07-10 18:01] LABS: FOLIC ACID 30.1 ng/mL (8.6-58.9)
[2017-07-10 18:57] VITALS: BP 137/61
[2017-07-11 04:24] VITALS: BP 124/57
[2017-07-11 07:37] LABS: RDW 21.6 % (10.5-14.5)
[2017-07-11 07:38] LABS: MCHC 33.3 g/dL (28.0-37.0); MCV 71.9 fL (80.0-100.0); RBC 2.56 mil/uL (4.20-5.00); WBC 11.5 thou/uL (4.0-11.0)
[2017-07-11 07:43] LABS: CALCIUM 7.9 mg/dL (8.5-10.1); CREATININE 1.1 mg/dL (0.6-1.0); MAGNESIUM 1.6 mg/dL (1.8-2.4); POTASSIUM 3.6 mmol/L (3.5-5.1)
[2017-07-11 07:46] LABS: HEMATOCRIT 18.4 % (37.0-47.0); HEMOGLOBIN 6.1 gm/dL (12.0-15.0)
[2017-07-11 08:20] VITALS: BP 131/57
[2017-07-11 11:37] VITALS: BP 129/63; BP 141/68
[2017-07-11 16:29] VITALS: BP 141/68
[2017-07-11 20:05] VITALS: BP 135/63
[2017-07-12 03:43] VITALS: BP 147/63
[2017-07-12 07:23] LABS: HEMATOCRIT 40.6 % (37.0-47.0); MCH 29.7 pg (26.0-34.0); MCHC 33.2 g/dL (28.0-37.0); RBC 4.53 mil/uL (4.20-5.00); RDW 14.2 % (10.5-14.5); WBC 5.6 thou/uL (4.0-11.0)
[2017-07-12 07:26] LABS: HEMOGLOBIN 13.5 gm/dL (12.0-15.0); MCV 89.7 fL (80.0-100.0)
[2017-07-12 07:39] LABS: CALCIUM 9.2 mg/dL (8.5-10.1); CREATININE 0.8 mg/dL (0.6-1.0); POTASSIUM 3.9 mmol/L (3.5-5.1)
[2017-07-12 08:00] VITALS: BP 123/81
[2017-07-12 09:53] LABS: HEMATOCRIT 27.4 % (37.0-47.0); MCHC 33.4 g/dL (28.0-37.0); RBC 3.66 mil/uL (4.20-5.00); RDW 22.2 % (10.5-14.5)
[2017-07-12 09:59] LABS: HEMOGLOBIN 9.2 gm/dL (12.0-15.0); MCV 74.9 fL (80.0-100.0)
[2017-07-12 10:02] LABS: CALCIUM 8.8 mg/dL (8.5-10.1); CREATININE 1.1 mg/dL (0.6-1.0); POTASSIUM 3.8 mmol/L (3.5-5.1)
[2017-07-12 10:28] LABS: ALBUMIN 1.7 g/dL (3.4-5.0); DIRECT BILIRUBIN 0.7 mg/dL (<0.1-0.3); TOTAL PROTEIN 5.8 g/dL (6.4-8.2)
[2017-07-12 16:00] VITALS: BP 131/57
[2017-07-12 20:50] VITALS: BP 148/59
[2017-07-13 02:58] VITALS: BP 149/67
[2017-07-13 07:12] LABS: HEMATOCRIT 25.7 % (37.0-47.0); HEMOGLOBIN 8.6 gm/dL (12.0-15.0); MCH 25.1 pg (26.0-34.0); MCHC 33.6 g/dL (28.0-37.0); MCV 74.7 fL (80.0-100.0); RBC 3.44 mil/uL (4.20-5.00); RDW 22.4 % (10.5-14.5); WBC 10.2 thou/uL (4.0-11.0)
[2017-07-13 07:19] LABS: CALCIUM 8.4 mg/dL (8.5-10.1); MAGNESIUM 1.9 mg/dL (1.8-2.4); POTASSIUM 3.7 mmol/L (3.5-5.1)
[2017-07-13 08:00] VITALS: BP 131/57
[2017-07-13 16:00] VITALS: BP 142/67
[2017-07-13 20:10] VITALS: BP 149/73
[2017-07-14 03:36] VITALS: BP 133/61
[2017-07-14 06:16] LABS: HEMATOCRIT 25.4 % (37.0-47.0); HEMOGLOBIN 8.3 gm/dL (12.0-15.0); MCH 24.8 pg (26.0-34.0); MCHC 32.8 g/dL (28.0-37.0); MCV 75.8 fL (80.0-100.0); RBC 3.36 mil/uL (4.20-5.00); RDW 22.9 % (10.5-14.5); WBC 13.1 thou/uL (4.0-11.0)
[2017-07-14 06:28] LABS: CALCIUM 8.6 mg/dL (8.5-10.1); MAGNESIUM 1.7 mg/dL (1.8-2.4); POTASSIUM 3.6 mmol/L (3.5-5.1)
[2017-07-14 08:00] VITALS: BP 147/67
[2017-07-14 08:42] LABS: INR 1.3; PROTIME 12.5 Seconds (9.3-11.4)
[2017-07-14 11:41] LABS: ALBUMIN 1.8 g/dL (3.4-5.0); DIRECT BILIRUBIN 0.3 mg/dL (<0.1-0.3); TOTAL BILIRUBIN 0.5 mg/dL (<0.1-1.0); TOTAL PROTEIN 5.5 g/dL (6.4-8.2)
[2017-07-14] MEDS ORDERED: KEFLEX500 M1 PO (14:38)
[2017-07-14 15:44] VITALS: BP 127/56
[2017-07-15 15:06] LABS: TRANSFERRIN RECEPTOR ASSAY 30.4 nmol/L (12.2-27.3)
== END 2017-07-14 18:15 | DRG 871 ==
LOC: ER 08:44 → 4S 10:09 → EROBS 10:09 → 4S 13:05
PROVIDERS: Emergency Medicine; Internal Medicine; Internal Medicine Hematology & Oncology; Nurse Practitioner; Radiology Diagnostic Radiology
DX: A41.9 Sepsis, unspecified organism (principal); E43 Unspecified severe protein-calorie malnutrition; E24.9 Cushing's syndrome, unspecified; N39.0 Urinary tract infection, site not specified; E87.1 Hypo-osmolality and hyponatremia; Z68.42 Body mass index [BMI] 45.0-49.9, adult; Z96.651 Presence of right artificial knee joint; E78.00 Pure hypercholesterolemia, unspecified; E03.9 Hypothyroidism, unspecified; D64.9 Anemia, unspecified; E11.22 Type 2 diabetes mellitus with diabetic chronic kidney disease; I12.9 Hypertensive chronic kidney disease with stage 1 through stage 4 chronic kidney disease, or unspecified chronic kidney disease; I48.91 Unspecified atrial fibrillation; D50.9 Iron deficiency anemia, unspecified; F31.9 Bipolar disorder, unspecified; E87.8 Other disorders of electrolyte and fluid balance, not elsewhere classified; R53.81 Other malaise; D63.8 Anemia in other chronic diseases classified elsewhere; Z60.2 Problems related to living alone; B96.20 Unspecified Escherichia coli [E. coli] as the cause of diseases classified elsewhere; N18.9 Chronic kidney disease, unspecified; Z79.82 Long term (current) use of aspirin; Z79.899 Other long term (current) drug therapy; Z90.49 Acquired absence of other specified parts of digestive tract; Z88.8 Allergy status to other drugs, medicaments and biological substances; Z85.3 Personal history of malignant neoplasm of breast; Z82.49 Family history of ischemic heart disease and other diseases of the circulatory system
CPT/HCPCS: 10195

== ENCOUNTER → 2017-09-07 | Outpatient (CLI) | payer OTHER ==
[~2017-09-07] MED LIST changes: +KEFLEX500 M1 PO
== END ==
LOC: RAD 00:29
DX: Z12.31 Encounter for screening mammogram for malignant neoplasm of breast (principal)

== ENCOUNTER → 2018-09-05 | Outpatient (CLI) | payer OTHER | LOC: RAD 01:24 | DX: Z12.31 Encounter for screening mammogram for malignant neoplasm of breast (principal) ==

== ENCOUNTER → 2019-01-16 | Outpatient (CLI) | payer OTHER | LOC: CAT 10:38 | DX: K57.30 Diverticulosis of large intestine without perforation or abscess without bleeding (principal); D35.01 Benign neoplasm of right adrenal gland; Z90.49 Acquired absence of other specified parts of digestive tract ==

== ENCOUNTER → 2019-09-13 | Outpatient (CLI) | payer OTHER | LOC: RAD 10:36 → BC 14:14 → RAD 14:18 | DX: Z12.31 Encounter for screening mammogram for malignant neoplasm of breast (principal) ==

== ENCOUNTER → 2019-11-08 | Outpatient (CLI) | payer OTHER | LOC: SJCVC 11:48 | PROVIDERS: ATTEND Internal Medicine Cardiovascular Disease | DX: R94.31 Abnormal electrocardiogram [ECG] [EKG] (principal); R00.1 Bradycardia, unspecified; I25.10 Atherosclerotic heart disease of native coronary artery without angina pectoris; I48.0 Paroxysmal atrial fibrillation; E78.00 Pure hypercholesterolemia, unspecified; E11.22 Type 2 diabetes mellitus with diabetic chronic kidney disease; I12.9 Hypertensive chronic kidney disease with stage 1 through stage 4 chronic kidney disease, or unspecified chronic kidney disease; N18.2 Chronic kidney disease, stage 2 (mild); Z86.2 Personal history of diseases of the blood and blood-forming organs and certain disorders involving the immune mechanism; Z86.39 Personal history of other endocrine, nutritional and metabolic disease ==

== ENCOUNTER 2020-07-09 08:54 | Emergency (ER) | payer OTHER ==
[~2020-07-09] VITALS: Ht 167.6 cm; Wt 111.1 kg
[2020-07-09 09:46] LABS: HEMATOCRIT 39.3 % (37.0-47.0); HEMOGLOBIN 13.2 gm/dL (12.0-15.0); MCH 29.2 pg (26.0-34.0); MCHC 33.7 g/dL (28.0-37.0); MCV 86.7 fL (80.0-100.0); RBC 4.53 mil/uL (4.20-5.00); RDW 14.2 % (10.5-14.5); WBC 15.2 thou/uL (4.0-11.0)
[2020-07-09 09:52] LABS: URINE BILIRUBIN NEGATIVE (Negative); URINE BLOOD TRACE (Negative); URINE CLARITY CLEAR; URINE COLOR YELLOW; URINE GLUCOSE-RANDOM* NEGATIVE (Negative); URINE KETONES NEGATIVE (Negative); URINE NITRITE-REFLEX NEGATIVE (Negative); URINE PROTEIN (DIPSTICK) NEGATIVE (Negative); URINE SPECIFIC GRAVITY 1.015 (1.005-1.035); URINE UROBILINOGEN 0.2 E.U./dl (0.2-1.0)
[2020-07-09 09:53] LABS: URINE LEUKOCYTES-REFLEX 3+ (Negative)
[2020-07-09 09:54] LABS: CREATININE 1.2 mg/dL (0.6-1.0); POTASSIUM 3.3 mmol/L (3.5-5.1)
[2020-07-09 10:00] LABS: ALBUMIN 3.1 g/dL (3.4-5.0); TOTAL BILIRUBIN 0.7 mg/dL (0.2-1.0); TOTAL PROTEIN 6.5 g/dL (6.4-8.2)
[2020-07-09 10:02] LABS: CASTS None Seen /LPF (None Seen); SQUAMOUS 0-3 Few /LPF (0-3)
[2020-07-09 10:03] LABS: BACTERIA-REFLEX 1-9 Few /HPF (None Seen); CRYSTALS None Seen /LPF (None Seen); URINE RBC 0-2 Rare /HPF (0-2); URINE WBC-REFLEX 6-15 Few /HPF (0-5); WBC CLUMPS Rare (None Seen)
[2020-07-09 11:19] LABS: ABSOLUTE NEUTROPHILS 5.8 thou/uL (1.4-8.2); ATYPICAL LYMPHS 5 %
[2020-07-09 11:20] LABS: LARGE PLATELETS OCCASIONAL; PLATELET COUNT 195 thou/uL (150-400)
[2020-07-09] MEDS ORDERED: KEFLEX500 M1 PO (12:18)
[2020-07-09 14:33] VITALS: BP 134/50
== END 2020-07-09 14:43 | disposition home or self-care (01) ==
LOC: ER 08:54
PROVIDERS: Emergency Medicine
DX: N39.0 Urinary tract infection, site not specified (principal); I10 Essential (primary) hypertension; E78.5 Hyperlipidemia, unspecified; E03.9 Hypothyroidism, unspecified; E11.9 Type 2 diabetes mellitus without complications; I48.91 Unspecified atrial fibrillation; Z79.82 Long term (current) use of aspirin; Z79.899 Other long term (current) drug therapy; Z88.8 Allergy status to other drugs, medicaments and biological substances

== ENCOUNTER → 2020-09-12 | Outpatient (CLI) | payer OTHER | LOC: SJCVCIMAG 08:56 | PROVIDERS: ATTEND Internal Medicine Cardiovascular Disease | DX: R94.31 Abnormal electrocardiogram [ECG] [EKG] (principal); I08.0 Rheumatic disorders of both mitral and aortic valves; R00.1 Bradycardia, unspecified; I25.10 Atherosclerotic heart disease of native coronary artery without angina pectoris; E78.00 Pure hypercholesterolemia, unspecified; I34.0 Nonrheumatic mitral (valve) insufficiency; I48.0 Paroxysmal atrial fibrillation; E11.22 Type 2 diabetes mellitus with diabetic chronic kidney disease; I12.9 Hypertensive chronic kidney disease with stage 1 through stage 4 chronic kidney disease, or unspecified chronic kidney disease; N18.4 Chronic kidney disease, stage 4 (severe); R74.01 Elevation of levels of liver transaminase levels; E24.0 Pituitary-dependent Cushing's disease; E66.9 Obesity, unspecified; E03.9 Hypothyroidism, unspecified; E78.5 Hyperlipidemia, unspecified; Z79.899 Other long term (current) drug therapy; Z79.82 Long term (current) use of aspirin; Z88.5 Allergy status to narcotic agent; Z88.8 Allergy status to other drugs, medicaments and biological substances ==

== ENCOUNTER → 2021-04-15 | Outpatient (CLI) | payer OTHER ==
[2021-04-15 12:03] LABS: ABSOLUTE NEUTROPHILS 4.1 thou/uL (1.4-8.2); BASOPHILS 0.8 % (0.0-2.0); EOSINOPHILS 0.5 % (0.0-3.0); HEMATOCRIT 38.5 % (37.0-47.0); HEMOGLOBIN 13.1 gm/dL (12.0-15.0); LYMPHOCYTES 36.8 % (24.0-44.0); MCH 29.6 pg (26.0-34.0); MCHC 34.1 g/dL (28.0-37.0); MONOCYTES 6.5 % (1.0-8.0); PLATELET COUNT 181 thou/uL (150-400); POLYS 55.4 % (36.0-66.0); RBC 4.42 mil/uL (4.20-5.00); RDW 14.4 % (10.5-14.5); WBC 7.4 thou/uL (4.0-11.0)
[2021-04-15 12:17] LABS: CALCIUM 8.9 mg/dL (8.5-10.1); CREATININE 0.9 mg/dL (0.6-1.0); POTASSIUM 3.4 mmol/L (3.5-5.1); TOTAL BILIRUBIN 0.9 mg/dL (0.2-1.0); TOTAL PROTEIN 6.1 g/dL (6.4-8.2)
== END ==
LOC: CAT 11:23
PROVIDERS: ATTEND Nurse Practitioner
DX: K57.30 Diverticulosis of large intestine without perforation or abscess without bleeding (principal); R10.9 Unspecified abdominal pain

== ENCOUNTER → 2021-04-23 | Outpatient (CLI) | payer OTHER ==
[~2021-04-23] MED LIST changes: +BACTRIM DS TAB1 EAC1 PO; +BENICAR40 MG PO; +PACERONE200 MG PO
== END ==
LOC: CAT 04-22 16:24
PROVIDERS: ATTEND Nurse Practitioner
DX: K76.9 Liver disease, unspecified (principal); R10.9 Unspecified abdominal pain; R16.0 Hepatomegaly, not elsewhere classified

== ENCOUNTER 2021-04-25 07:58 | Inpatient (IN) | payer OTHER ==
[~2021-04-25] VITALS: Ht 167.6 cm; Wt 99.8 kg
[~2021-04-25 07:58] MED LIST changes: -BACTRIM DS TAB1 EAC1 PO; -BENICAR40 MG PO; -PACERONE200 MG PO
[2021-04-25 07:59] VITALS: BP 185/64
[2021-04-25] MEDS ORDERED: BACTRIM DS TAB1 EAC1 PO (08:20)
[2021-04-25] MEDS ORDERED: PACERONE200 MG PO (08:21)
[2021-04-25] MEDS ORDERED: JANUVIA100 MG PO (08:21)
[2021-04-25] MEDS ORDERED: BENICAR40 MG PO (08:21)
[2021-04-25 08:26] LABS: HEMATOCRIT 39.2 % (37.0-47.0); HEMOGLOBIN 13.1 gm/dL (12.0-15.0); MCH 28.9 pg (26.0-34.0); MCHC 33.4 g/dL (28.0-37.0); MCV 86.5 fL (80.0-100.0); PLATELET COUNT 216 thou/uL (150-400); RBC 4.53 mil/uL (4.20-5.00); RDW 13.9 % (10.5-14.5); WBC 11.4 thou/uL (4.0-11.0)
[2021-04-25 08:36] LABS: URINE BLOOD 3+ (Negative); URINE CLARITY CLEAR; URINE COLOR YELLOW; URINE GLUCOSE-RANDOM* 2+ (Negative); URINE KETONES TRACE (Negative); URINE LEUKOCYTES-REFLEX NEGATIVE (Negative); URINE NITRITE-REFLEX NEGATIVE (Negative); URINE PROTEIN (DIPSTICK) 1+ (Negative); URINE UROBILINOGEN 0.2 E.U./dl (0.2-1.0)
[2021-04-25 08:41] LABS: ICTOTEST (BILI CONFIRMATORY) Negative (Negative); URINE BILIRUBIN NEGATIVE (Negative)
[2021-04-25 08:56] LABS: ABSOLUTE NEUTROPHILS 10.1 thou/uL (1.4-8.2)
[2021-04-25 08:57] LABS: ANISOCYTOSIS SLIGHT
[2021-04-25 09:03] LABS: SQUAMOUS 0-3 Few /LPF (0-3)
[2021-04-25 09:04] LABS: CALCIUM 9.7 mg/dL (8.5-10.1); CREATININE 1.5 mg/dL (0.6-1.0); POTASSIUM 4.5 mmol/L (3.5-5.1)
[2021-04-25 09:04] LABS: HYALINE CASTS 4-10 Moderate /LPF (None Seen)
[2021-04-25 09:06] LABS: URINE RBC 1-2 Rare /HPF (NONE SEEN); URINE WBC-REFLEX 0-5 Rare /HPF (0-5)
[2021-04-25 09:08] LABS: CRYSTALS None Seen /LPF (None Seen)
[2021-04-25 09:24] LABS: ALBUMIN 3.3 g/dL (3.4-5.0); TOTAL BILIRUBIN 0.8 mg/dL (0.2-1.0); TOTAL PROTEIN 6.2 g/dL (6.4-8.2)
[2021-04-25 17:13] VITALS: BP 166/62
[2021-04-25 21:39] VITALS: BP 155/52
[2021-04-26 05:43] LABS: HEMATOCRIT 34.7 % (37.0-47.0); HEMOGLOBIN 11.6 gm/dL (12.0-15.0); MCH 29.6 pg (26.0-34.0); MCHC 33.4 g/dL (28.0-37.0); MCV 88.6 fL (80.0-100.0); RBC 3.91 mil/uL (4.20-5.00); RDW 14.5 % (10.5-14.5); WBC 13.7 thou/uL (4.0-11.0)
[2021-04-26 06:17] LABS: CALCIUM 8.6 mg/dL (8.5-10.1); POTASSIUM 4.4 mmol/L (3.5-5.1)
[2021-04-26 08:00] VITALS: BP 166/75
[2021-04-26] MEDS ORDERED: AMARYL2 M1 PO (09:21)
[2021-04-26 11:38] LABS: ALBUMIN 2.7 g/dL (3.4-5.0); CALCIUM 8.6 mg/dL (8.5-10.1); CREATININE 1.1 mg/dL (0.6-1.0); POTASSIUM 4.8 mmol/L (3.5-5.1); TOTAL BILIRUBIN 0.4 mg/dL (0.2-1.0); TOTAL PROTEIN 5.4 g/dL (6.4-8.2)
[2021-04-26 12:04] LABS: FOLIC ACID 4.8 ng/mL (8.6-58.9)
[2021-04-26 16:09] VITALS: BP 167/73
--- NOTE | 2021-04-26 17:45 | NUR ---
Pt transferred to unit from ED. Pt a&ox4. States she has been feeling week recently. Pt uses a wheelchair at home. RA. Denies pain. IV fluids infusing. Pt refuses insulin in the hospital. Call light within reach. Fall precautions in place. Will continue to monitor.
[2021-04-26 19:23] VITALS: BP 155/67
--- NOTE | 2021-04-27 04:09 | NUR ---
patient aox4 makes needs known. patient incontinent this shift,pericare and barrier cream applied as needed. patient turned q 2 hours as patient can tolerate. fall precaution in place. patient in bed asleep at this time breathing regular and unlaboured.
[2021-04-27 06:26] LABS: ABSOLUTE NEUTROPHILS 10.7 thou/uL (1.4-8.2); BASOPHILS 0.1 % (0.0-2.0); HEMATOCRIT 35.7 % (37.0-47.0); HEMOGLOBIN 11.6 gm/dL (12.0-15.0); LYMPHOCYTES 12.8 % (24.0-44.0); MCH 28.8 pg (26.0-34.0); MCHC 32.5 g/dL (28.0-37.0); MCV 88.6 fL (80.0-100.0); MONOCYTES 3.4 % (1.0-8.0); PLATELET COUNT 173 thou/uL (150-400); POLYS 83.7 % (36.0-66.0); RBC 4.04 mil/uL (4.20-5.00); RDW 14.7 % (10.5-14.5); WBC 12.7 thou/uL (4.0-11.0)
[2021-04-27 06:45] LABS: CALCIUM 8.6 mg/dL (8.5-10.1); MAGNESIUM 1.6 mg/dL (1.8-2.4); POTASSIUM 3.9 mmol/L (3.5-5.1)
[2021-04-27 07:00] VITALS: BP 138/60
--- NOTE | 2021-04-27 08:50 | NUR ---
Assumed care of pt at 0700. pt a&ox4. Denies pain. External female catheter in place. Pt refuses insulin in the hospital. RA. IVF and IV antibiotics infusing. Call light within reach. Fall precautions in place. Will continue to monitor.
--- NOTE | 2021-04-27 09:35 | HC ---
[facility] [place] [address] [place] [address] CONSULTATION Name: YOSI TATE Room #: 435-P [facility] IN M.R.#: [id number] Admission: 04/25/21 Attend Phys: Ministerio Barton MD Discharge: Date of : 46 Report #: [id number] THIS REPORT FOR: cc: Morgan Vazquez MD, Neal A. MD McElhinney, Christian C. MD ~ cc: Ministerio Barton MD, Marcelo Hough MD DATE OF SERVICE: 04/26/2021 HISTORY OF PRESENT ILLNESS: The patient is a 75-year-old female who presented to the Emergency Room from feeling generalized fatigue. In fact, she was on the toilet for approximately 3 hours and unable to get up. Therefore, called Emergency assistance. She does report recent history of lower bilateral abdominal pain, weight loss of approximately 20 pounds over the last few weeks. She is not actively trying to lose weight. She was feeling poor in general and saw her primary recently, was diagnosed with an urinary tract infection and was started on antibiotics. Apparently had showing possible liver cyst at that time as well. The patient denies any fevers, but has been having chills. She does report some nausea, but denies any emesis. She denies any obvious bright red blood per rectum or melena. Her bowel movements she says averages every 2-3 days, which is her baseline. I performed a consultation on the patient for anemia in 07/2017. At that time, she had had a previous upper endoscopy March before which showed gastric bypass changes, no stigmata of bleeding. Dr. Taveras, my partner done a colonoscopy showing diverticulosis, but otherwise negative. At one point, we discussed possible M2 capsule. The patient denies any abdominal pain at this time. She denies any heartburn. No dysphagia, no emesis. Reason for GI consultation was for weight loss, abdominal pain as well as elevated liver function test and recent CT findings. The patient underwent a CT scan of the abdomen and pelvis on admission yesterday, which showed new minimal left basilar focal ground glass infiltration, a short segment of enteroenteric intussusception located at the enteroenteric anastomosis, diverticulosis noted in the colon, right pulmonary nodule, right infrahilar lymphadenopathy and previous cholecystectomy changes noted. CT scan of the chest was also performed, which showed right lower lobe possible bronchiectasis and endobronchial debris. Mass or postoperative changes such as tumor is not excluded. Peripheral pulmonary infiltrate is noted. Hepatic low density lesions, most likely cyst, although not incompletely evaluated. Her liver function tests show mild elevation in her AST and ALT. Hemoglobin at this time was 11.6. The patient has also been on a statin medication as well as other meds. PAST MEDICAL HISTORY: Previous cholecystectomy, history of gastric bypass. She underwent an EGD and colonoscopy approximately 2016, colonoscopy showing [address] [address] CONSULTATION Name: YOSI TATE Room #: 435-P [facility] IN M.R.#: [id number] Admission: 04/25/21 Attend Phys: Ministerio Barton MD Discharge: Date of : 46 Report #: [id number] diverticulosis; previous laparoscopic cholecystectomy, total right knee, Nahomi syndrome, atrial fibrillation, non-insulin dependent diabetes, history of depression, hypertension, hypercholesterolemia, hypothyroidism and history of anemia. ALLERGIES: METOLAZONE, PREDNISONE. MEDICATIONS: On admission, Keflex, Pacerone, Lipitor, Bactrim, amiodarone, Januvia, Benicar, multivitamin, aspirin 81 mg and Prozac. REVIEW OF SYSTEMS: As per HPI. FAMILY HISTORY: Negative for colon cancer. SOCIAL HISTORY: She denies any tobacco or alcohol use. PHYSICAL EXAMINATION: VITAL SIGNS: Temperature is 36.7, pulse 59, blood pressure is 166/75 and respiratory rate 24. GENERAL: She is alert and oriented x 3, in no acute distress. HEENT: Sclerae nonicteric. Oropharynx clear. NECK: Supple, without lymphadenopathy. CARDIOVASCULAR: Regular rate. CHEST: Clear to auscultation bilaterally. ABDOMEN: Obese, soft. She is nontender, nondistended. Normoactive bowel sounds. EXTREMITIES: No cyanosis, clubbing or edema. LABORATORY DATA: WBC is 13.7, hemoglobin 11.6, platelet count 169. Sodium 135, potassium 4.8, chloride 101, bicarbonate 19, BUN 18, creatinine 1.1, glucose 197. Lactic acid level 1.4, magnesium 1.7, iron 21. TIBC 88%, sat 24. Ferritin 14 64, total bilirubin 0.4, direct bilirubin 0.3, AST 181, ALT 97. INR 1.3. COVID test was negative. ASSESSMENT AND PLAN: 1. Elevated liver function tests, specifically AST, ALT. These have been elevated in the past. I suspect this is multifactorial as the patient has been on recent antibiotics. She also is on statin. Agree with holding this at this time. Recent imaging showing possible cyst within the liver on the CT scan. The patient has had a previous cholecystectomy. Her bile duct was not dilated. Her bilirubin and alkaline phosphatase are normal. I do not think this is a biliary drainage problem more likely hepatocellular in nature. She did note that she saw a liver specialist at one time and was told she had fatty liver changes. Again, this could be the cause of her elevated liver function test. I do not think this is the cause of her recent abdominal pain. [facility] [address] [place] [address] CONSULTATION Name: YOSI TATE Room #: 435-P ADM IN .R.#: [id number] Admission: 04/25/21 Attend Phys: Ministerio Barton MD Discharge: Date of : 47 Report #: [id number] 2. History of intermittent lower abdominal pain and weight loss. The patient does take an aspirin. She has had a gastric bypass before. She had an upper endoscopy approximately 4 years ago. I would recommend repeating upper endoscopy on Wednesday. Continue PPI. Need to rule out the possibility of peptic ulcer disease. 3. CT showing possible intussusception of the gastric bypass anastomosis. I doubt this is clinically significant. I measured this, a 2 cm in size. She is not having any vomiting. She is only having mild nausea. She underwent a CT with contrast as well, but again this will be evaluated with an upper endoscopy in the near future. Thank you for allowing me to participate in her care. <ELECTRONICALLY SIGNED> By: Miah Kwan MD 04/27/21 0935 1304 02 Miah Kwan MD /nt
[2021-04-27 19:01] VITALS: BP 171/68
[2021-04-28 04:11] VITALS: BP 156/60
--- NOTE | 2021-04-28 05:11 | NUR ---
PT LYING IN BED. DENIES PAIN. CALL LIGHT WITHIN REACH. NO NEEDS VOICED. FREQUENT OBSERVATION.
[2021-04-28 06:47] LABS: ALBUMIN 2.4 g/dL (3.4-5.0); CALCIUM 8.3 mg/dL (8.5-10.1); CREATININE 0.9 mg/dL (0.6-1.0); POTASSIUM 3.5 mmol/L (3.5-5.1); TOTAL BILIRUBIN 0.6 mg/dL (0.2-1.0); TOTAL PROTEIN 5.2 g/dL (6.4-8.2)
--- NOTE | 2021-04-28 07:13 | EKG ---
[address] [address] ELECTROCARDIOGRAM REPORT Name: JUAN CARLOS TATEDES King Room #: 435-P ADM IN M.R.#: [id number] Admission: 04/25/21 Attend Phys: Ministerio Barton MD Discharge: Date of : 47 Report #: [id number] [facility] ED Test Date: 2021-04-25 Test Time: 08:05:00 Pat Name: YOSI TATE Department: Room: [facility] Gender: F Insurance Adjustor: : 1945 Requested By: Vijay Ashby Order Number: [id number] MD: Robert Yancey Measurements Intervals Zimmerman Rate: 63 P: 0 SD: 186 QRS: -23 QRSD: 113 T: 30 QT: 573 QTc: 587 Interpretive Statements Sinus rhythm Probable left atrial enlargement Left ventricular hypertrophy Anterior infarct, old Prolonged QT interval Compared to ECG 03/15/2017 16:02:40 Myocardial infarct finding now present Prolonged QT interval now present Electronically Signed On 04-28-2021 7:13:40 CAR RENTAL CLERK by Robert Yancey [email or web address] <ELECTRONICALLY SIGNED> By: Robert Yancey MD, [facility] 04/28/21712 4 4 Robert Yancey MD, [facility] /EPI
[2021-04-28 08:16] VITALS: BP 145/58
--- NOTE | 2021-04-28 09:39 | NUR ---
Chart review. DX: uti, sepsis. Has external female cath up to suction. Possible going for EGD today. Intro to cm and dcp. A & o x 3, pleasant, able to make her needs know. Lives home alone, son radha does the shopping and granddaughter helps set up her medications. Has ramp, wheelchair, shower bench, grab bars and life alert at home. Been to rehab in the past and think might need it again, went to one in [place] per shani. Referral to be sent to [facility] [place] skilled. Will cont following as needed.
--- NOTE | 2021-04-28 09:45 | NUR ---
Assumed care of pt at 0700. Pt a&ox4. Denies pain. IVF and IV antibiotics infusing. Pt refuses insulin in the hospital. External female catheter in place. Scheduled for EGD today. Call light within reach. Will continue to monitor.
[2021-04-28 16:10] VITALS: BP 159/56
[2021-04-28 22:30] VITALS: BP 155/72
--- NOTE | 2021-04-29 04:49 | NUR ---
RECEIVED CARE OF THIS PATIENT AT 1900. PATIENT ALERT AND ORIENTEDX4. IV PATENT IN LAC WITH FLUIDS INFUSING. HAS PURWICK THAT IS PATENT WITH YELLOW URINE. REMAINS ON BEDREST AT THIS TIME. SLEPT MOST OF THE NIGHT.
[2021-04-29 07:21] VITALS: BP 159/57
--- NOTE | 2021-04-29 11:03 | NUR ---
[facility][1], has accepted for skilled rehab. james spoke with shani and she agrees with flp for today and she is going to call her son radha to bring her some more close. Chart copy requested. Bedside nurse to call report to [phone]. wheel chair transport set up by [facility][1].
[2021-04-29] MEDS ORDERED: PROTONIX 20 MG20 MG PO (11:49)
[2021-04-29] MEDS ORDERED: AUGMENTIN 875-1 EACH PO (11:51)
[2021-04-29] MEDS ORDERED: NOVOLOG100 UNIT/M SUBQ (11:59)
[2021-04-29] MEDS ORDERED: IPRAT-ALBUT 0.5-3 ML INH (12:00)
[2021-04-29 12:29] VITALS: BP 159/57
--- NOTE | 2021-04-29 12:53 | NUR ---
PATIENT CARE RESUMMED; PATIENT IN BED RESTING COMFORTABLY; V/S STABLE TO PATIENT BASELINE; PATIENT ACHS-ALTHOUGH REFUSED COVERAGE FOR BOTH 0700 & 1200 GLUCOSE CHECKS; A&O*4; COOPERATIVE AND PLESENT WITH CARES; MEDICATIONS WHOLE:PO; PUREWICK WAS REPLACED TODAY; *2LOOSE BOWELMOVEMENTS TODAY AFTER MOM WAS REPORTEDLY GIVEN YESTERDAY; PATIENT COMPLAINED OF "PRESSURE" IN ABDOMEN AT 0745, STATING SHE HAS NOT HAD BOWELMOVEMENT IN 4 DAYS; LATER PASSING 2BM; SKIN INTACT WITH SCARS & BRUISING NOTED; IV IN THE LEFT AC RUNNING 1/2NS@75ML/HR; PATIENT VOICED THE CONCERN ABOUT LEAVING TODAY; LATER INFORMED OF POSITIVE PLACEMENT AND D/C TO FACILIY; CALL LIGHT WITHIN REACH; FALL PRECAUTIONS IN PLACE;
== END 2021-04-29 15:55 | DRG 682 ==
LOC: ER 07:58 → 4S 11:22 → EROBS 11:22 → 4S 04-26 15:09
PROVIDERS: Emergency Medicine; Nurse Practitioner; ADMIT Hospitalist; ATTEND Hospitalist
PROC: 0DJ08ZZ Inspection of Upper Intestinal Tract, Via Natural or Artificial Opening Endoscopic (ICD-10-PCS; principal; 2021-04-28)
DX: N17.0 Acute kidney failure with tubular necrosis (principal); J18.9 Pneumonia, unspecified organism; N39.0 Urinary tract infection, site not specified; E44.0 Moderate protein-calorie malnutrition; E24.9 Cushing's syndrome, unspecified; K56.1 Intussusception; E11.9 Type 2 diabetes mellitus without complications; R91.1 Solitary pulmonary nodule; R94.5 Abnormal results of liver function studies; Z20.822 Contact with and (suspected) exposure to COVID-19; I48.91 Unspecified atrial fibrillation; F32.9 Major depressive disorder, single episode, unspecified; I10 Essential (primary) hypertension; E03.9 Hypothyroidism, unspecified; E78.00 Pure hypercholesterolemia, unspecified; K57.90 Diverticulosis of intestine, part unspecified, without perforation or abscess without bleeding; Z96.651 Presence of right artificial knee joint; E78.5 Hyperlipidemia, unspecified; K76.9 Liver disease, unspecified; R74.01 Elevation of levels of liver transaminase levels; R53.81 Other malaise; M81.0 Age-related osteoporosis without current pathological fracture; R59.1 Generalized enlarged lymph nodes; E53.8 Deficiency of other specified B group vitamins; Z60.2 Problems related to living alone; R63.4 Abnormal weight loss; Z68.35 Body mass index [BMI] 35.0-35.9, adult; Z98.84 Bariatric surgery status; Z85.3 Personal history of malignant neoplasm of breast; Z90.12 Acquired absence of left breast and nipple; Z90.49 Acquired absence of other specified parts of digestive tract; Z88.8 Allergy status to other drugs, medicaments and biological substances
CPT/HCPCS: 10195; 62110; 62900; 70005